=== PATIENT | male | born 1995 | race Hispanic/Latino ===

== ENCOUNTER 2022-10-23 12:29 | Emergency (ER) | payer SELFPAY ==
[2022-10-23] MEDS ORDERED: Fluorescein Opthalmic Strip ONE (15:06)
[2022-10-23] MEDS ORDERED: Proparacaine 0.5% Opth 15 ML BOT ONE (15:06)
== END 2022-10-23 16:23 | disposition home or self-care (01) ==
LOC: ERS 12:29
DX: H11.31 Conjunctival hemorrhage, right eye (principal); I10 Essential (primary) hypertension; F17.210 Nicotine dependence, cigarettes, uncomplicated
CPT/HCPCS: 99283